=== PATIENT | male | born 1975 | race Caucasian/White ===

== ENCOUNTER 2023-02-20 05:29 | Day surgery (SDC) | payer BC, OTHER ==
[2023-02-20] MEDS ORDERED: Midazolam 1 MG/ML 2 ML SDV IV ONE ×7 (05:30→06:36)
[2023-02-20] MEDS ORDERED: fentaNYL 100 MCG/2 ML SDV IV ONE ×5 (05:30→06:39)
[2023-02-20] MEDS ORDERED: Dextrose 5%-0.45% NaCl 1,000 ML IV SCH (06:00)
[2023-02-20] MEDS ORDERED: fentaNYL 100 MCG/2 ML SDV ONE (06:16)
[2023-02-20] MEDS ORDERED: Midazolam 1 MG/ML 2 ML SDV ONE (06:16)
[2023-02-20] MEDS ORDERED: Sodium Chloride 0.9% 1,000 ML IV SCH (07:00)
== END 2023-02-20 08:10 | disposition home or self-care (01) ==
LOC: DL.ENDO 05:29
PROVIDERS: ATTEND Internal Medicine Gastroenterology
DX: Z12.11 Encounter for screening for malignant neoplasm of colon (principal); D12.0 Benign neoplasm of cecum; E78.00 Pure hypercholesterolemia, unspecified; Z90.79 Acquired absence of other genital organ(s); Z80.0 Family history of malignant neoplasm of digestive organs
CPT/HCPCS: J2250; J3010; J7030; J7042